=== PATIENT | female | born 1945 | race Caucasian/White ===

== ENCOUNTER 2022-11-18 13:25 | Emergency (ER) | payer MEDICARE, SELFPAY ==
[2022-11-18 13:30] VITALS: BP 129/54; PULSE 70; RESP 18; TEMP 36.4; O2SAT 98; BMI 36.2
--- NOTE | 2022-11-18 14:02 | ED_ITS ---
HPI - General Adult General Chief complaint: Extremity Injury, Lower Stated complaint: RIGHT HIP PAIN Time Seen by Provider: 11/18/22 13:37 Source: patient Mode of arrival: Wheelchair Limitations: no limitations History of Present Illness HPI narrative: patient is a 77-year-old female who reports to the emergency department for the evaluation of increasing pain in the right hip after a fall two months ago. She states that she had x-rays done as an outpatient with her PCP and has been prescribed [place] and Flexeril but is not having improvement with these medications and is now having difficulty ambulating. She states that she fell 2 months ago onto her bottom and initially was having bilateral hip pain but is now only having right hip pain in the right lateral hip joint. She is not on blood thinners. She is a well controlled type II diabetic. She denies peripheral paresthesias to the legs or urinary changes. Related Data Previous Rx's Medication Instructions Recorded meloxicam 7.5 mg tablet 7.5 mg PO DAILY #7 tabs 11/18/22 methocarbamol 500 mg tablet 500 mg PO Q8H #15 tabs 11/18/22 Allergies Allergy/AdvReac Type Severity Reaction Status Date / Time Sulfa (Sulfonamide Allergy Intermediate Verified 11/18/22 13:33 Antibiotics) Review of Systems ROS Constitutional Denies: fever or chills Ears, nose, mouth, and throat Denies: neck pain Respiratory Denies: shortness of breath or cough Gastrointestinal Denies: nausea or vomiting Musculoskeletal Reports: back pain, extremity pain, joint pain and limited range of motion; Denies: neck pain or extremity swelling Integumentary/Breast Denies: rash Hematologic/Lymphatic Denies: easy bruising [facility] Social History Smoking status: Former smoker Exam Narrative Exam Narrative: Gen.: Awake, alert, in no distress Head: Normocephalic, atraumatic ENT: Moist mucous membranes Respiratory: No respiratory distress Extremities: no bony point tenderness of the T-spine or L-spine. Limited range of motion at the right hip to flexion. Normal dorsiflexion and plantarflexion of the bilateral feet. No decrease in sensation to the medial thighs. No bony point tenderness or obvious deformity of the right hip, no rotation of the right lower extremity Psych: Normal mood and affect Neuro: No focal neuro deficit Skin: Warm, dry, intact Constitutional Vital Signs, click to edit/add: Last Vital Signs Temp 97.6 F 11/18/22 13:30 Pulse 70 11/18/22 13:30 Resp 18 11/18/22 13:30 BP 129/54 11/18/22 13:30 Pulse Ox 98 11/18/22 13:30 O2 Del Method Room Air 11/18/22 13:30 Course Vital Signs Vital signs: Vital Signs Temperature 97.6 F 11/18/22 13:30 Pulse Rate 70 11/18/22 13:30 Respiratory Rate 18 11/18/22 13:30 Blood Pressure 129/54 11/18/22 13:30 Pulse Oximetry 98 11/18/22 13:30 Oxygen Delivery Method Room Air 11/18/22 13:30 Temperature 97.6 F 11/18/22 13:30 Pulse Rate 70 11/18/22 13:30 Respiratory Rate 18 11/18/22 13:30 Blood Pressure 129/54 11/18/22 13:30 Pulse Oximetry 98 11/18/22 13:30 Oxygen Delivery Method Room Air 11/18/22 13:30 Medical Decision Making MDM Narrative Medical decision making narrative: CT of the pelvis with no evidence of acute bony process. Patient was able to ambulate with a walker. She will be prescribed a short course of low back and Robaxin, stop Flexeril and continue [place]. Consider following with orthopedics and return to the Emergency Room if symptoms change or worsen. Patient is in agreement that she does not need to be admitted for PT/OT evaluation and is safe to go home. Medical Records Medical records reviewed: Yes I reviewed the patient's medical records Imaging Data CT pelvis: Attestation: I have reviewed the pertinent imaging results. Radiologist's impression: Procedure: CT pelvis wo con EXAM: CT pelvis wo con HISTORY: Right hip pain, fall, unable to ambulate COMPARISON: None. TECHNIQUE: CT pelvis without contrast. Multiplanar reformats obtained. The current study utilizes one or more of the following dose-reduction techniques: automated exposure control, iterative reconstruction, and/or manual adjustment of tube current and voltage for size. FINDINGS: No evidence of proximal femur fracture or hip dislocation. No pelvic fracture or diastases. Lower lumbar fusion hardware. Bilateral acetabular and femoral head neck junction osteophytes. Hip joint space is maintained. IMPRESSION: No acute findings. Electronically authenticated by: ANGEL CLEVELAND Date: 11/18/2022 14:42 Discharge Plan Discharge Chief Complaint: Extremity Injury, Lower Clinical Impression: Acute pain of right hip Patient Disposition: Home, Self-Care Time of Disposition Decision: 15:18 Condition: Good Prescriptions / Home Meds: New methocarbamol 500 mg tablet 500 mg PO Q8H Qty: 15 0RF meloxicam 7.5 mg tablet 7.5 mg PO DAILY Qty: 7 0RF Instructions: Arthralgia (ED), Hip Pain (ED) Additional Instructions: Stop cyclobenzaprine(Flexeril) and try robaxin(methocarbamol) for the next several days. Follow up with orthopedics Stand Alone Forms: Portal Instructions Referrals: Dawit Escobedo MD [Primary Care Provider] - 1 week Kevin Villa MD [Physician] - 1 week
--- NOTE | 2022-11-18 14:18 | CT_ITS ---
The [address] [address] Patient Name: MIR SIMMS MRN: [id number] date: 1945 Sex: F Assigned Patient Location: ER Current Patient Location: ER Accession/Order Number: [id number] Exam Date: 11/18/2022 14:12 Report Date: 11/18/2022 14:42 At the request of: VARGAS AYALA Procedure: CT pelvis wo con EXAM: CT pelvis wo con HISTORY: Right hip pain, fall, unable to ambulate COMPARISON: None. TECHNIQUE: CT pelvis without contrast. Multiplanar reformats obtained. The current study utilizes one or more of the following dose-reduction techniques: automated exposure control, iterative reconstruction, and/or manual adjustment of tube current and voltage for size. FINDINGS: No evidence of proximal femur fracture or hip dislocation. No pelvic fracture or diastases. Lower lumbar fusion hardware. Bilateral acetabular and femoral head neck junction osteophytes. Hip joint space is maintained. CT/CT pelvis wo con IMPRESSION: No acute findings. Electronically authenticated by: ANGEL CLEVELAND Date: 11/18/2022 14:42
[2022-11-18] MEDS: KETOROLAC TROMETHAMINE 30 MG/ML VIAL 15 MG IVP (14:40)
[2022-11-18] MEDS: MORPHINE SULFATE 2 MG/ML SYRINGE IV (14:41)
[2022-11-18] MEDS: ONDANSETRON PF 4 MG/2 ML VIAL IV (14:41)
[2022-11-18 15:22] VITALS: BP 120/60; PULSE 72; O2SAT 95
== END 2022-11-18 15:39 | disposition home or self-care (01) ==
PROVIDERS: Emergency Provider Emergency Medicine; PCP Family Medicine
DX: M25.551 Pain in right hip (principal); E11.9 Type 2 diabetes mellitus without complications; Z87.891 Personal history of nicotine dependence
CPT/HCPCS: 72192; 96374; 96375; 99285

== ENCOUNTER 2022-12-08 10:15 | Outpatient (OUT) | payer MEDICARE, SELFPAY ==
--- NOTE | 2022-12-08 10:18 | XR_ITS ---
The [address] [address] Patient Name: MIR SIMMS MRN: [id number] date: 1945 Sex: F Assigned Patient Location: [facility] Current Patient Location: Accession/Order Number: [id number] Exam Date: 12/08/2022 10:20 Report Date: 12/09/2022 06:43 At the request of: CRIS GROSS Procedure: XR hip RT 2V w/ pelvis PROCEDURE: XR hip RT 2V w/ pelvis HISTORY: Acute Pain Right Hip M25.551 ; pain since falling a few months ago COMPARISON: None. FINDINGS: BONES:Narrowing of the hip joint spaces bilaterally. No significant periarticular osteophytes or subchondral sclerosis. No fracture, dislocation, bone lesion. Mechanical fusion of lower lumbar spine. SOFT TISSUES:No visible soft tissue swelling. EFFUSION:None visible. OTHER: Negative. XR/XR hip RT 2V w/ pelvis IMPRESSION: 1. No acute bone abnormality. 2. 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 Electronically authenticated by: CRIS HUMPHREY Date: 12/09/2022 06:43
== END 2022-12-08 10:16 | disposition home or self-care (01) ==
LOC: RAD 10:15
PROVIDERS: PCP Family Medicine; Visit Provider Orthopaedic Surgery
DX: M25.551 Pain in right hip (principal)
CPT/HCPCS: 73502